=== PATIENT | female | born 1990 | race Caucasian/White ===

== ENCOUNTER 2021-06-10 17:28 | Emergency (ER) | payer MEDICAID, SELFPAY ==
[2021-06-10] MEDS ORDERED: Dexamethasone 10 MG/ML VIAL ONE (19:40)
[2021-06-10] MEDS ORDERED: Albuterol 200 PUFF (6.7GM INHALER) ONE (19:40)
[2021-06-10 19:48] LABS: #Eosinphils 0.1 thou/uL (0.0-0.7); #Lymphocytes 1.1 thou/uL (1.20-3.40); #Monocytes 0.6 thou/uL (0.11-0.59); #Neutrophils 2.2 thou/uL (1.40-6.50); %Basophils 1.2 % (0.0-1.0); %Eosinophils 2.5 % (0.0-10.0); %Lymphocytes 26.8 % (21.0-51.0); %Neutrophils 55.6 % (42.0-75.0); Mean Corpuscular HGB CONC 32.1 g/dL (32.0-36.0); Mean Corpuscular Volume 93.4 fL (78.0-98.0); Platelet Count 180 thou/uL (130-400); RBC Distribution Width 11.3 % (11.5-14.5); Red Blood Cell (RBC) Count 5.33 mill/uL (4.20-5.40)
[2021-06-10 20:04] LABS: ALT (SGPT) 22 U/L (8-55); AST (SGOT) 24 U/L (5-34); Albumin 4.3 g/dL (3.5-5.0); Alkaline Phosphatase 56 U/L (40-110); Anion Gap 15 mmol/L (10-20); BUN (Urea Nitrogen) 9 mg/dL (7.0-18.7); Bilirubin, Total 0.4 mg/dL (0.2-1.2); Calc. Creatinine Clearance 0 mL/min (70-130); Calcium 9.3 mg/dL (7.8-10.44); Carbon Dioxide 23 mmol/L (22-29); Chloride 104 mmol/L (98-107); Globulin 3.4 g/dL (2.4-3.5); Glucose 78 mg/dL (70-105); Potassium 4.1 mmol/L (3.5-5.1); Protein, Total 7.7 g/dL (6.0-8.3); Sodium 138 mmol/L (136-145)
[2021-06-11 20:54] LABS: SARS-CoV-2 PCR by NAA DETECTED (NotDetected)
== END 2021-06-10 20:28 | disposition home or self-care (01) ==
LOC: MADERS 17:28
DX: U07.1 COVID-19 (principal); J20.9 Acute bronchitis, unspecified; J45.901 Unspecified asthma with (acute) exacerbation; F17.210 Nicotine dependence, cigarettes, uncomplicated
CPT/HCPCS: 36415; 71045; 80053; 84484; 85025; 93005; 96372; J1100; U0003; U0005